=== PATIENT | male | born 1955 | race Caucasian/White ===

== ENCOUNTER 2016-04-29 05:41 | Day surgery (SDC) | payer OTHER ==
--- NOTE | ~2016-04-29 | EGD ---
EGD REPORT [facility] [address] [address] NAME: LUIS ALFREDO PIERRE : [birth year] STATUS : REG [facility]#: [id number] AGE: 60 ADM/REG DATE : 04/29/16 MR#: [id number] REPORT SERV DATE: 04/29/16 DICTATED BY: THAI SALAZAR DATE: 04/29/16 REPORT STATUS : Draft TRANSCRIBED BY: [employer] DATE: 04/29/16 [facility] Patient Name: Luis Alfredo Pierre Date of : 1955 Attending MD: THAI SALAZAR MD Procedure Date No Time: 04/29/2016 Procedure: Colonoscopy Indications: High risk colon cancer surveillance: Personal history of colonic polyps Referring MD: Jose R Morrow MD Medicines: as per anesthesia Complications: No immediate complications. Procedure: Pre-Anesthesia Assessment: - ASA Grade Assessment: III - A patient with severe systemic disease. After I obtained informed consent, the scope was passed under direct vision. Throughout the procedure, the patient's blood pressure, pulse, and oxygen saturations were monitored continuously. The PCF [id number] was introduced through the anus and advanced to the cecum, identified by appendiceal orifice and ileocecal valve. The colonoscopy was performed without difficulty. The patient tolerated the procedure. The quality of the bowel preparation was fair. Findings: The perianal and digital rectal examinations were normal. A sessile polyp was found in the transverse colon. The polyp was 4 mm in size. The polyp was removed with a jumbo cold forceps. Resection and retrieval were complete. Two sessile polyps were found in the descending colon. The polyps were 3 to 4 mm in size. These polyps were removed with a jumbo cold forceps. Resection and retrieval were complete. Internal hemorrhoids were found during endoscopy and were mild. Impression: - One 4 mm polyp in the transverse colon. Resected and retrieved. - Two 3 to 4 mm polyps in the descending colon. Resected and retrieved. - Internal hemorrhoids. Recommendation: - Await pathology results. - Repeat colonoscopy for surveillance based on pathology results. EGD REPORT [facility] [address] [facility] [address] NAME: LUIS ALFREDO PIERRE : [birth year] STATUS : REG [facility]#: [id number] AGE: 60 ADM/REG DATE : 04/29/16 MR#: [id number] REPORT SERV DATE: 04/29/16 DICTATED BY: THAI SALAZAR. DATE: 04/29/16 REPORT STATUS : Draft TRANSCRIBED BY: [employer] DATE: 04/29/16 Procedure Code(s): --- Professional --- 40123, Colonoscopy, flexible, proximal to splenic flexure; with biopsy, single or multiple Diagnosis Code(s): --- Professional --- D12.4, Benign neoplasm of descending colon D12.3, Benign neoplasm of transverse colon K64.8, Other hemorrhoids Z86.010, Personal history of colonic polyps CPT copyright 2013 [employer]. All rights reserved. The codes documented in this report are preliminary and upon medical coder review may be revised to meet current compliance requirements. THAI SALAZAR MD 04/29/2016 7:53 AM This report has been signed electronically. Number of Addenda: 0 Note Initiated On: 04/29/2016 7:06 AM Scope Withdrawal Time 0 hours 12 minutes 30 seconds [address] [place] [address]
[~2016-04-29 05:41] MED LIST: ACET500CAP PO; ADVIL PO; ANOROELLIPTA INH; ASAB PO; C5; CARD120 PO; FLEX PO; FLONASE NAS; GLUCPH PO; IBU400 PO; IPRATROPIUM BROMIDE NAS; MUCINEX1200 MG PO; MUCINEX600 MG PO; MUCOUS RELIEF PO; MULTIPLE VIT PO; MUSCLE RELAXER PO; OTC SINUS MED PO; PCET PO; PROAIR HFA INH; SINGULAIR1 PO; TESS PO; ULTRAM50 PO; VITAMIN C100 M1 PO; VITC500 PO; XPECT400 MG PO; Z-PAK PO
== END 2016-04-29 23:59 | disposition home or self-care (01) ==
LOC: DMU 05:41
PROVIDERS: Internal Medicine Gastroenterology
PROC: 0DBM8ZZ Excision of Descending Colon, Via Natural or Artificial Opening Endoscopic (ICD-10-PCS; 2016-04-29)
PROC: 0DBL8ZZ Excision of Transverse Colon, Via Natural or Artificial Opening Endoscopic (ICD-10-PCS; principal; 2016-04-29 07:00)
DX: Z12.11 Encounter for screening for malignant neoplasm of colon (principal); D12.3 Benign neoplasm of transverse colon; D12.4 Benign neoplasm of descending colon; K64.8 Other hemorrhoids; I10 Essential (primary) hypertension; G47.33 Obstructive sleep apnea (adult) (pediatric); E11.9 Type 2 diabetes mellitus without complications; M19.90 Unspecified osteoarthritis, unspecified site; E66.01 Morbid (severe) obesity due to excess calories; Z68.43 Body mass index [BMI] 50.0-59.9, adult; Z86.010 Personal history of colon polyps; Z79.84 Long term (current) use of oral hypoglycemic drugs; Z79.82 Long term (current) use of aspirin; Z79.1 Long term (current) use of non-steroidal anti-inflammatories (NSAID); Z79.51 Long term (current) use of inhaled steroids; Z79.899 Other long term (current) drug therapy
CPT/HCPCS: 82962; 88305